=== PATIENT | male | born 1955 | race Caucasian/White ===

== ENCOUNTER 2018-12-29 12:57 | Emergency (ER) | payer MEDICAID, OTHER ==
[2018-12-29 13:37] VITALS: BMI 24.7
[2018-12-29 13:45] VITALS: RESP 18; O2SAT 100
[2018-12-29] MEDS ORDERED: Naproxen 550 mg Tab PO STA (14:08)
[2018-12-29] MEDS ORDERED: Naproxen 550 mg Tab PO ONE (14:25)
--- NOTE | 2018-12-29 16:09 | RAD ---
Date of service: 12/29/2018 PROCEDURE: Left Knee Radiographs. HISTORY: Pain. COMPARISON: None. TECHNIQUE: 2 views obtained. FINDINGS: BONES: No acute fracture or destructive bony lesion identified. JOINTS: Joint space narrowing medial femorotibial compartment, moderate at the lateral femorotibial and patellofemoral compartments. No osteophyte development or prominent cortical sclerosis. JOINT EFFUSION: None. OTHER FINDINGS: None. IMPRESSION: No acute fracture, subluxation or dislocation left knee. Moderate degenerative joint disease.
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
[2018-12-29 16:43] VITALS: BP 134/82; PULSE 68; TEMP 98.1
== END 2018-12-29 16:46 | disposition left against medical advice (07) ==
LOC: C.ER 12:57
DX: S72.92XA Unspecified fracture of left femur, initial encounter for closed fracture (principal); X58.XXXA Exposure to other specified factors, initial encounter; M25.552 Pain in left hip; M25.562 Pain in left knee